=== PATIENT | female | born 1985 | race Caucasian/White ===

== ENCOUNTER 2017-04-09 06:49 | Day surgery (SDC) | payer BC ==
[~2017-04-09] VITALS: Ht 165.1 cm; Wt 81.8 kg
[~2017-04-09 06:49] MED LIST: ALPR0.5T3 PO; CYCL-36 PO; NEUR600T PO; NORC7.5T PO; OXYC5 PO; TRI-TAB PO
[2017-04-09] MEDS ORDERED: SODIUM CHLOR 0.9% 1000 ML INJ 1,000 ML IV SCH (07:00)
[2017-04-09 07:04] VITALS: BP 135/98; PULSE 87; RESP 20; TEMP 97.9; O2SAT 97
[2017-04-09] MEDS ORDERED: ceFAZolin 2 GM PREMIX 50 ML IV SCH (07:15)
[2017-04-09] MEDS ORDERED: NORG1TAB3 PO (07:27)
[2017-04-09] MEDS ORDERED: XANA1TAB2 PO (07:27)
[2017-04-09 07:58] LABS: AUTOMATED NEUTROPHIL # 5.4 TH/MM3 (1.8-7.7); BASOPHIL # 0.1 TH/MM3 (0-0.2); BASOPHIL % 1.3 % (0.0-2.0); EOSINOPHIL # 0.3 TH/MM3 (0-0.4); EOSINOPHIL % 3.3 % (0.0-4.0); HEMATOCRIT 39.6 % (35.0-46.0); HEMO FLAGS DIFF FINAL; LYMPH % 38.3 % (9.0-44.0); MEAN CELL VOLUME 85.1 FL (80.0-100.0); MEAN CORPUSCULAR HEMOGLOBIN 28.6 PG (27.0-34.0); MEAN CORPUSCULAR HGB CONC 33.6 % (32.0-36.0); NEUT % 52.1 % (16.0-70.0); PLATELET COUNT 374 TH/MM3 (150-450); RED BLOOD COUNT 4.66 MIL/MM3 (4.00-5.30); RED CELL DISTRIBUTION WIDTH 13.3 % (11.6-17.2); WHITE BLOOD COUNT 10.4 TH/MM3 (4.0-11.0)
[2017-04-09 08:05] LABS: APTT (PATIENT) 25.2 SEC (24.3-30.1); INTERNATIONAL NORMALIZED RATIO 0.9 RATIO; PROTHROMBIN TIME - PATIENT 9.9 SEC (9.8-11.6)
[2017-04-09] MEDS ORDERED: HYDROmorphone HCL PF 2 MG/ML VIAL ONE (09:05)
[2017-04-09] MEDS ORDERED: fentaNYL CITRATE 250 MCG/5 ML AMP ONE (09:21)
--- NOTE | 2017-04-09 09:40 | PD.RAD ---
Post Procedure Progress Note Pre Procedure Diagnosis: (1) Lumbar radiculopathy Post Procedure Diagnosis: (1) Lumbar radiculopathy Procedure Date: Apr 09, 2017 Supervising Radiologist: Domo Peres Proceduralist/Assist: Peyton Rojas, RT(R), Nereyda Stevenson RT(R)() Anesthesia: Conscious Sedation Plan of Activity Patient to Unit: [facility] Patient Condition: Good See PACS Report for procedural detail/treatment Spinal Procedure Discogram L5-S1 (positive with 1 cc) Domo Peres MD Apr 09, 2017 09:40
[2017-04-09 10:15] VITALS: BP 129/90; PULSE 69; RESP 18; TEMP 98; O2SAT 97
--- NOTE | 2017-04-09 10:25 | RADRPT ---
EXAM DATE/TIME: 04/09/2017 10:00 [facility] COMPARISON: DISCOGRAM, LUMBAR, April 09, 2017, 8:50. INDICATIONS : Post L5-S1 discogram. RADIATION DOSE: 28.40 CTDIvol (mGy) MEDICAL HISTORY : None SURGICAL HISTORY : None. ENCOUNTER: Initial ACUITY: 1 day PAIN SCALE: 0/10 LOCATION: lower back TECHNIQUE: Volumetric scanning of the lumbar spine was performed. Multiplanar reconstructions in the sagittal, coronal and oblique axial planes were performed. Using automated exposure control and adjustment of the mA and/or kV according to patient size, radiation dose was kept as low as reasonably achievable t o obtain optimal diagnostic quality images. DICOM format image data is available electronically for review and comparison. FINDINGS: Limited CT examination of the lower lumbar spine reveals a contrast in the L5-S1 intervertebral disc from injection under fluoroscopic guidance earlier. There is slight annular disc bulge and exit of co ntrast dorsally through a central annular tear. Protrusion of disc material minimally eccentric to th e right. This does not appear to produce a significant degree of canal compromise, however potentiall y affecting the forming S1 nerve roots right worse than left. L5 foramina are widely patent. CONCLUSION: Central annular tear with mild protrusion at L5-S1 as described. Please see report of discogram injec tion procedure for clinical findings. Johny Hoyt MD on April 09, 2017 at 10:20 Board Certified Radiologist. This report was verified electronically.
--- NOTE | 2017-04-09 11:28 | RADRPT ---
EXAM DATE/TIME: 04/09/2017 08:50 [facility] COMPARISON: No previous studies available for comparison. INDICATIONS : Patient is in need of a lumbar discogram for evaluation of disc herniation. MEDICAL HISTORY : History of spinal stenosis, post laminectomy syndrome, HTN. SURGICAL HISTORY : History of laminectomy, knee surgery. ENCOUNTER: Initial ACUITY: 1 month PAIN SCORE: 9/10 LOCATION: back with poain radiating down right leg FLUORO TIME: 5.7 minutes IMAGE SERIES: 2 CONTRAST: 1 cc Omnipaque (iohexol) 300 LEVEL(S): L5 PAIN RESPONSE: Exactly reproduced patient's pain MEDICATION(S): 1.) 2 g cefazolin (Ancef) IV 2.) 2 mg hydromorphone (Dilaudid) IV 3.) 100 mcg fentanyl (Sublimaze) IV Vancomycin within 2 hrs of procedure, Ancef (or alternative) within 1 hr of procedure. PROCEDURE : 1. Fluoroscopically-guided discogram. 2. Conscious sedation with continuous EKG and oximetry monitoring. The risks, benefits and alternatives to the procedure were explained and verbal and written consent w as obtained. The site was prepped in sterile fashion. Full sterile technique was used, including ca p, mask, sterile gloves and gown and a large sterile sheet. Hand hygiene and 2% chlorhexidine and/or betadine/alcohol prep was utilized per protocol for cutaneous antisepsis. The skin and subcutaneous tissues were infiltrated with local anesthetic solution. With fluoroscopic guidance the disc was pu nctured via a steep oblique approach maintaining a needle path in an extradural location. The needle was confirmed to be within the disc space on both the AP and lateral projections. The disc was inject ed with the prescribed volume of contrast and the patient's pain response was recorded. The images demonstrate contrast posterior to the disc margin without epidural spread. The images demo nstrate degeneration of the disc. CT scan is to be performed. The exam was clinically positive. Conscious sedation was performed with the prescribed dosages and duration as above in the presence of an independent trained radiology nurse to assist in the monitoring of the patient. EKG and oximetry remained stable throughout the procedure. The patient tolerated the procedure well and there were n o complications. The patient was sent to post anesthesia recovery in stable condition. CONCLUSION: 1. Clinically positive discogram as above. CT scan is to be performed Domo Peres MD on April 09, 2017 at 11:25 Board Certified Radiologist. This report was verified electronically.
[2017-04-09 12:15] VITALS: BP 111/70; PULSE 72; RESP 18; O2SAT 97
[2017-05-04] MEDS ORDERED: AMOX875T PO (13:22)
[2017-05-04] MEDS ORDERED: DIFL150T PO (13:22)
[2017-05-09] MEDS ORDERED: PROM25TA10 PO (18:38)
[2017-05-09] MEDS ORDERED: AZIT500T2 PO (18:38)
[2017-06-03] MEDS ORDERED: ADDE30XR PO (11:51)
== END 2017-04-09 12:30 | disposition home or self-care (01) ==
LOC: HROP 06:49 → HRIP 06:52 → HROP 12:30
PROVIDERS: ATTEND Orthopaedic Surgery Orthopaedic Surgery of the Spine
DX: M51.26 Other intervertebral disc displacement, lumbar region (principal); I10 Essential (primary) hypertension; F32.9 Major depressive disorder, single episode, unspecified; F41.9 Anxiety disorder, unspecified; M96.1 Postlaminectomy syndrome, not elsewhere classified
CPT/HCPCS: 62290; 72131; 72295; 85025; 85610; 85730; J0690; J1170; J3010

== ENCOUNTER 2017-06-04 09:00 | Inpatient (IN) | payer BC ==
[~2017-06-04] VITALS: Ht 165.1 cm; Wt 79.2 kg
[~2017-06-04 09:00] MED LIST changes: +ADDE30XR PO; -ALPR0.5T3 PO; -CYCL-36 PO; -NEUR600T PO; -NORC7.5T PO; +NORG1TAB3 PO; -OXYC5 PO; -TRI-TAB PO; +XANA1TAB2 PO
--- NOTE | 2017-06-04 09:16 | MH ---
cc: TAMICA STEPHEN DATE OF ADMISSION: 06/04/2017 ADMISSION DIAGNOSIS Status post lumbar laminectomy. HISTORY This patient is a 32-year-old female having had a previous lumbar laminectomy. The patient initially did well but developed recurrent back and hip and leg pain. Investigative studies shows evidence of recurrent disk herniation to the right at L5-S1. The patient is having right hip and leg pain, predominantly in the S1 distribution. She developed progressive degenerative changes across same level. She now presents for revision of lumbar laminectomy, resection herniated nucleus pulposus and a posterior fusion across the same level. PAST MEDICAL HISTORY, SOCIAL HISTORY, FAMILY HISTORY, REVIEW OF SYSTEMS See attached notes. PHYSICAL EXAMINATION GENERAL: A 32-year-old female in moderate distress with her back, right hip and leg. HEENT: Normocephalic, atraumatic. Pupils equal, round, reactive to light and accommodation. Extraocular motions intact. NECK: Supple. CHEST: Clear. HEART: Regular rate and rhythm. ABDOMEN: Soft, nontender with normoactive bowel sounds. MUSCULOSKELETAL EXAMINATION: The thoracolumbar spine with restricted motion, well-healed right-sided incision in the lumbar spine. Straight leg raise is positive on the right and negative on the left. Motor examination shows weakness right gastrocsoleus. IMPRESSION 1. Status post lumbar laminectomy L5-S1 right. 2. Recurrent herniated nucleus pulposus. 3. Right lumbosacral radiculopathy. 4. Degenerative disc disease lumbar spine. PLAN Revision lumbar laminectomy right L5, S1, lateral recess decompression, resection of recurrent herniated nucleus pulposus, posterior spinal fusion, posterolateral interbody fusion, interbody cage, posterior spinal segmental instrumentation, bone grafting. CONSENT There are risks with surgery including infection, bleeding, loss of motion, continued pain, need for further surgery, neurologic and vascular injury. The patient understands these issues and wishes to press on with the surgery as outlined above. MD ROSY Peña/CORY /11:20 PM /9:09 AM
[2017-06-04] MEDS ORDERED: PROM25TA10 PO (10:29)
[2017-06-04] MEDS ORDERED: POVIDONE IODINE 5% (ANTISEPSIS KIT) 4 APPLICATIONS EACH NARE PRN (10:30)
[2017-06-04] MEDS ORDERED: INSULIN HUMAN REGULAR 1,000 UNITS/10 ML VIAL SQ PRN (10:30)
[2017-06-04] MEDS ORDERED: SODIUM CHLORID 0.9% 500 ML IV PRN (10:30)
[2017-06-04] MEDS ORDERED: CHLORHEXIDINE GLUCONATE 2 % 1 PACK (2 CLOTHS) TOPICAL PRN (10:30)
[2017-06-04] MEDS ORDERED: METOPROLOL TARTRATE 25 MG TAB PO PRN (10:30)
[2017-06-04] MEDS ORDERED: LACTATED RINGER'S 1000 ML IV PRN (10:30)
[2017-06-04] MEDS ORDERED: ceFAZolin INJ 1,000 MG VIAL IV ONE ×2 (10:41→16:59)
[2017-06-04] MEDS ORDERED: ONDANSETRON HCL 4 MG/2 ML VIAL IV PUSH ONE (10:41)
[2017-06-04] MEDS ORDERED: ROCURONIUM INJ 50 MG/5 ML SYRINGE IV PUSH ONE (10:41)
[2017-06-04] MEDS ORDERED: DEXAMETHASONE SOD PHOS 4 MG/ML VIAL IV ONE (10:41)
[2017-06-04] MEDS ORDERED: PROPOFOL 200 MG/20 ML AMP IV ONE (10:41)
[2017-06-04] MEDS ORDERED: MIDAZOLAM HCL 2 MG/2 ML VIAL IV ONE (10:41)
[2017-06-04] MEDS ORDERED: PHENYLEPH/NS 1000 MCG/10 ML SYR IV ONE (10:41)
[2017-06-04] MEDS ORDERED: VANCOMYCIN 1000 MG/NS 250 ML (for <70 kg) IV SCH ×2 (10:45)
[2017-06-04] MEDS ORDERED: ceFAZolin 2 GM PREMIX 50 ML IV SCH (10:45)
[2017-06-04] MEDS ORDERED: POVIDONE IODINE 7.5% SCRUB 118 ML BOTTLE TOPICAL SCH (10:45)
[2017-06-04] MEDS ORDERED: BETAMETHASONE SOD PHOS/ACETATE SUSP 30 MG/5 ML VIAL ONE (12:45)
[2017-06-04] MEDS ORDERED: GENTAMICIN SULFATE 80 MG/2 ML VIAL ONE (12:45)
[2017-06-04] MEDS ORDERED: HYDROmorphone HCL PF 2 MG/ML VIAL ONE (16:18)
[2017-06-04] MEDS ORDERED: ACETAMINOPHEN 1000 MG/100 ML 100 ML IV ONE (16:18)
--- NOTE | 2017-06-04 17:28 | RADRPT ---
EXAM DATE/TIME: 06/04/2017 17:00 [facility] COMPARISON: No previous studies available for comparison. INDICATIONS : L5-S1 fusion. MEDICAL HISTORY : None. SURGICAL HISTORY : L5-S1 discogram ENCOUNTER: Initial ACUITY: 1 day PAIN SCORE: Non-responsive. LOCATION: Bilateral lumbar spine FINDINGS: Targeted intraoperative OEC spot images of the lumbosacral junction in the AP and lateral projections . Bipedicular posterior fixation with intervertebral disc prostheses. Hardware all appears to be inta ct. No fracture or significant listhesis. CONCLUSION: Appropriate postoperative appearance of the lumbosacral junction with Bipedicular posterior fixa tion and intervertebral disc prostheses at L5-S1. Abelino Mauricio MD on June 04, 2017 at 17:25 Board Certified Radiologist. This report was verified electronically.
[2017-06-04] MEDS ORDERED: PROMETHAZINE HCL 25 MG TAB PO PRN (17:30)
[2017-06-04] MEDS ORDERED: ALPRAZolam 1 MG TAB PO PRN (17:30)
[2017-06-04] MEDS ORDERED: KETAMINE HCL 500 MG/5 ML VIAL ONE (17:40)
--- NOTE | 2017-06-04 17:41 | PD.OP ---
cc: Irving Spivey MD Operative Report Date of Surgery: Jun 04, 2017 Preoperative Diagnosis: Status post lumbar laminectomy right L5-S1 Recurrent herniated nucleus pulposus L5-S1. Right lumbosacral radiculopathy. Degenerative disc disease lumbar spine, L5-S1 Postoperative Diagnosis: Same Procedure: Revision lumbar laminectomy right L5, S1 with subtotal right facet resection and resection recurrent herniated nucleus pulposus. Posterior spinal fusion, L5-S1. Posterior spinal segmental instrumentation, L5-S1. Posterior lateral interbody fusion, L5-S1. Placement of interbody cage L5-S1 from the right. Grafting of the lumbar spine Anesthesia: Gen. Surgeon: Irving Spivey Family Living Educator(s): ALTA Mejias Operation and Findings: EBL: 150 cc INDICATION: This patient is a 32-year-old female status post previous laminectomy and decompression for large disc herniation at L5-S1. The patient had recurrent pain into the right leg. Investigative studies shows evidence of recurrent disc herniation centrally into the right at the same level creating a significant mass effect on the spinal canal. The patient presents for revision laminectomy and fusion NOTE: Cee Mejias PA-C was present for the entire surgical procedure as my first crusher. In my medical opinion her skill and care was necessary for the proper management of this patient. PROCEDURE: The patient was brought to the operating room and anesthetized in the supine position. The patient was rolled to a prone position on a Alcides frame on a Seb table. All pressure points were protected in the back was scrubbed with alcohol followed by Hibiclens followed by ChloraPrep and draped sterilely. A timeout was done and antibiotics were given. AP and lateral radiographic images were used to identify the proper levels and perform skin markings. We started from the right side at the L5-S1 level. A paramedian incision was made, excising the previous incision, and a midline fascial incision was made. A dilating system was placed down to the interlaminar space and held provisionally to the side of the table. A high-speed bur under the microscope was used to perform a revision laminectomy from that side. A lateral recess decompression was accomplished. A subtotal facet resection was accomplished. The crossing and exiting nerve roots were completely decompressed. There was evidence of a recurrent disc herniation centrally into the right creating a significant mass effect upon the crossing S1 nerve root. A portion of the disc extended into the foramen adjacent to the L5 nerve root. This was resected. An annulotomy was performed. A total discectomy was accomplished. All of the disc was removed from the disc space. The disc was then prepared for a cage. On the back table a combination of autogenous bone graft and stem cell material was mixed with demineralized bone matrix. This prepared on the back table to be used for bone grafting. The bone graft was placed into the disc space between the operative level. An a Stax expandable cage was placed in the center between that level. There was no complication. The alignment was satisfactory. No significant bleeding was encountered. The wound was irrigated copiously. The fascia was closed with interrupted 0 Vicryl suture. Percutaneous screws were placed on the same side with a sequence of a small fascial incision, a bur down to the pedicle under fluoroscopy and placement of the guidepin within the proper position of the vertebral body. This measured carefully tapped and proper length screws were positioned. A percutaneous shannan was positioned according to manometer technician's recommendation and tightened. Wounds irrigated copiously bone graft placed along the transverse process across that region. The fascia was closed with interrupted Vicryl suture subcutaneous history of suture and skin with running intradermal 3-0 Vicryl followed by Steri-Strips The attention directed to the opposite side. Percutaneous screws were positioned. Under fluoroscopy a small incision was made. An danielle was placed down through the pedicle followed by placement of a guide pin and measured and tapped for proper screw. The screws were advanced and a percutaneous shannan was placed according to manometer technician's recommendation. This was then tightened. The wound was irrigated. Bone graft was placed along the transverse processes across that region. The fascia was closed with interrupted Vicryl suture, subcutaneous tissue with 2-0 Vicryl suture and skin with running intradermal 3- 0 Vicryl. Intraoperative x-rays were obtained alignment was satisfactory rotation was noted.. The sponge count needle counts and instrument counts were all correct. The patient tolerated procedure well was taken to the recovery room in satisfactory condition. FINDINGS: There was evidence of a very redundant annulus and a disc herniation to the right at the operative level. The screws were by spine wave and the cage by the same company. We used one medium Nucel stem cells with a combination of BMP and cortical bone powder. There was no complication that was appreciated Irving Spivey MD Jun 04, 2017 17:41
[2017-06-04] MEDS ORDERED: HYDR-3580 PO (17:43)
[2017-06-04] MEDS ORDERED: SODIUM CHLORIDE 0.9% FLUSH 5 ML FLUSH IVF PRN (17:45)
[2017-06-04] MEDS ORDERED: DO NOT ADM ANY ANTICOAGULANT DRUGS PRN ×2 (17:45→17:59)
[2017-06-04] MEDS ORDERED: ACETAMINOPHEN/HYDROcodone 325 MG/7.5 MG TAB PO PRN ×2 (17:45)
[2017-06-04] MEDS ORDERED: Post-op Orders (for Pharmacy) MISC XX ONE (17:45)
[2017-06-04] MEDS ORDERED: MORPHINE SULFATE 8 MG/ML INJ IV PUSH PRN (17:45)
[2017-06-04] MEDS ORDERED: BISACODYL 10 MG SUPP RECTAL PRN (17:45)
[2017-06-04] MEDS ORDERED: NALOXONE HCL 0.4 MG/ML AMP IV PUSH PRN (17:45)
[2017-06-04] MEDS ORDERED: ONDANSETRON HCL 4 MG/2 ML VIAL IV PUSH PRN (17:45)
[2017-06-04] MEDS ORDERED: MORPHINE SULFATE 30 MG/30 ML PCA IV SCH (17:45)
[2017-06-04] MEDS ORDERED: ALUMINUM/MAGNESIUM/SIMETH 30 ML CUP PO PRN (17:45)
[2017-06-04] MEDS ORDERED: SOD PHOSPHATE/SOD BIPHOSPHATE (ADULT) ENEMA 133ML PR PRN (17:45)
[2017-06-04] MEDS ORDERED: *morphine SULFATE 8 MG/ML PERIprocedure ONLY ONE ×2 (17:53→18:04)
[2017-06-04] MEDS ORDERED: *MEPERIDINE 25 MG INJ VIAL PERIprocedural Use ONLY ONE (17:56)
[2017-06-04] MEDS: LACTATED RINGER'S 1000 ML INJ 1,000 ML IV SCH (18:00)
[2017-06-04] MEDS ORDERED: MORPHINE SULFATE 30 MG/30 ML PCA ONE (18:22)
[2017-06-04] MEDS ORDERED: HYDROmorphone HCL PF 1 MG/ML VIAL ONE (18:22)
[2017-06-04 19:51] VITALS: BP 125/82; PULSE 72; RESP 16; TEMP 95.4; O2SAT 100
[2017-06-04] MEDS ORDERED: ZOLPIDEM TARTRATE 5 MG TAB PO PRN (21:00)
[2017-06-04] MEDS: SODIUM CHLORIDE 0.9% FLUSH 5 ML FLUSH IVF SCH (21:00)
[2017-06-04 21:32] VITALS: O2SAT 100
[2017-06-04] MEDS: PCA - TOTAL MG MORPHINE DELIVERED PER SHIFT SCH (22:00)
[2017-06-05 00:21] VITALS: BP 121/79; PULSE 94; RESP 17; TEMP 96.4; O2SAT 99
[2017-06-05 04:00] VITALS: BP 125/79; PULSE 79; RESP 15; TEMP 97.7; O2SAT 100
[2017-06-05 05:32] LABS: HEMATOCRIT 30.7 % (35.0-46.0); REVIEW FLAG FINAL
[2017-06-05] MEDS: LACTATED RINGER'S 1000 ML INJ 1,000 ML IV SCH (06:30)
[2017-06-05] MEDS: SODIUM CHLORIDE 0.9% FLUSH 5 ML FLUSH IVF SCH (07:33)
[2017-06-05] MEDS: PCA - TOTAL MG MORPHINE DELIVERED PER SHIFT SCH (07:34)
[2017-06-05 08:00] VITALS: BP 124/81; PULSE 87; RESP 18; TEMP 97.9; O2SAT 100
--- NOTE | 2017-06-05 08:42 | HHI.DCPOC ---
Discharge Care Plan Diagnosis: (1) Postlaminectomy syndrome (2) Degeneration of intervertebral disc of lumbar region (3) Lumbar radiculopathy Your Health Problems Are: Incision/Drains Swelling Goals to Promote Your Health * To prevent worsening of your condition and complications * To maintain your health at the optimal level Directions to Meet Your Goals Take your medications as prescribed Follow your dietary instruction Follow activity as directed Keep your appointments as scheduled Take your immunizations and boosters as scheduled If your symptoms worsen call your PCP, if no PCP go to Urgent Care Center or Emergency Room Smoking is Dangerous to Your Health. Avoid second hand smoke Call the 24-hour hour crisis hotline for domestic abuse at Rika Vera Jun 05, 2017 08:42
--- NOTE | 2017-06-05 08:48 | HHI.DS ---
Discharge Summary Admission Date Jun 04, 2017 at 09:46 Discharge Date: Jun 05, 2017 Admitting Diagnosis see below Diagnosis: (1) Lumbar radiculopathy Diagnosis: Principal ICD Codes: M54.16 - Lumbar radiculopathy Status: Acute (2) Postlaminectomy syndrome Diagnosis: Principal ICD Codes: M96.1 - Postlaminectomy syndrome, not elsewhere classified (3) Degeneration of intervertebral disc of lumbar region Diagnosis: Principal ICD Codes: M51.36 - Other intervertebral disc degeneration, lumbar region Procedures Lumbar laminectomy L5S1, subtotal facet resection, posterior lumbar fusion L5S1 , posterolateral interbody fusion, posterior spinal segmental instrumentation and interbody cage L5S1, bone graft. Brief History This is a 32 year old female patient with a history of previous disc herniation and laminectomy L5S1. She did well for a period of time and then began having increased back pain. She sought out medical treatment. Imaging studies were ordered showing increased dessication and instability at the L5S1 level. Medications and therapy were ordered. She began having increased radicular pain in her legs so an MRI was ordered. Epidural steroid injections were pursued but she continued to struggle and her back pain increased. Surgical treatment was recommended and after several months she elected to move forward. CBC/BMP: 06/05/17 0520 Significant Findings Laboratory Tests Test 06/05/17 05:20 Hemoglobin 10.6 GM/DL (11.6-15.3) Hematocrit 30.7 % (35.0-46.0) Hospital Course Surgical treatment was performed on the day of admission without complication. She recovered well in PACU and was transferred to the orthopaedic floor. Pain was controlled with IV and oral medications. She was compliant with physical therapy and all restrictions. After ___ day she was found to be stable and discharged home with home health care. She was instructed to continue with dry dressing changes daily, to pursue a high fiber diet for 3-5 days and to continue her lumbar brace for 10-12 weeks. She was given a prescription of [place] 7.5mg to be filled outpatient. Pt Condition on Discharge: Stable Discharge Disposition: Disch w/ Home Health Serv Discharge Instructions Diet Instructions: As Tolerated, No Restrictions, High Fiber Diet Activities You Can Perform: Weight Bearing as Patsy, See Additionl Instruction Activities to Avoid: Strenuous Activity Additional Activity Instruc.: Brace full-time when out of bed for 10-12 weeks. New Medications: Adjustable Commode 3-in-1 (Adjustable Commode 3-in-1) 1 Mis Mis EA .ROUTE DIRECTED, #1 Walker with Front Wheels (Walker with Front Wheels) 1 Mis Mis EA .ROUTE DIRECTED, #1 0 Refills Hydrocodone-Acetaminophen (Hydrocodone-Acetaminophen) 7.5-325 mg Tab 1 TAB PO Q4H PRN for PAIN, #50 TAB Continued Medications: Alprazolam (Xanax) 1 Mg Tab 1 MG PO BID PRN for ANXIETY, TAB 0 Refills Norgestimate-Ethinyl Estradiol (Norgestimate-Ethinyl Estradiol) 0.18/0.215/0.25 Mg-25 Mcg Tab 1 TAB PO DAILY for Control, #1 PACK 0 Refills Promethazine (Phenergan) 25 Mg Tablet 25 MG PO Q6H PRN for NAUSEA OR VOMITING, TAB 0 Refills Rika Vera Jun 05, 2017 08:48
[2017-06-05] MEDS ORDERED: WALKER WHEELS/F1 MIS (08:49)
--- NOTE | 2017-06-05 08:52 | HHI.FF ---
Face to Face Verification Diagnosis: (1) Lumbar radiculopathy (2) Postlaminectomy syndrome (3) Degeneration of intervertebral disc of lumbar region Physical Therapy Gait training, Safety evaluation, Transfer training, bed to chair S/P Spinal Fusion: Gait training with walker, Weight bearing as tolerated, No twisting of torso, No bending Additional Instructions PT 4 days/wk for ONE week. WBAT. 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 No substantial bending, twisting or lifting. Nursing RN Days per Week: 4 x Week(s): 1 Dressing Changes: Daily dressing change, 4x4s, Coverderm/Primapore Additional Instructions RN 4 days.wk for ONE week. Dry dressing changes daily w etoh and coverderm. Ok to shower pod#5-6 if dressing dry and no drainage. NO tub baths for 3-4 weeks postop I have seen patient Fina Johnsno on 06/05/17. My clinical findings support the need for the requested home health care services because: Limited ability to care for self High risk of falls I certify that my clinical findings support that this patient is homebound because: Post-op weakness Unsteady gait/balance Rika Vera Jun 05, 2017 08:52
[2017-06-05] MEDS ORDERED: NORGESTIMATE ETHINYL ESTRADIOL PO SCH (09:00)
[2017-06-05] MEDS ORDERED: ETHINYL ESTRADIOL PO SCH (09:00)
[2017-06-05] MEDS ORDERED: NORGESTIMATE PO SCH (09:00)
[2017-06-05] MEDS ORDERED: ADJUSTABLE COMM1 MIS (09:22)
--- NOTE | 2017-06-05 11:48 | PD.ORT.PN ---
Subjective Subjective Remarks Doing well. She is very pleased with her pain control. She states that despite her surgery she feels better today than prior to the surgery. She denies any new radiating leg pain. Urinating well. Appetite slowly returning. No other complaints or concerns. She would like to discharge home today. Objective Vitals Vital Signs Date Time Temp Pulse Resp B/P (MAP) Pulse Ox O2 Delivery O2 Flow Rate FiO2 06/05/17 08:00 97.9 87 18 124/81 (95) 100 06/05/17 07:34 16 06/05/17 04:00 97.7 79 15 125/79 (94) 100 06/05/17 00:21 96.4 94 17 121/79 (93) 99 06/04/17 22:00 15 06/04/17 21:32 100 Nasal Cannula 2.00 06/04/17 19:51 95.4 72 16 125/82 (96) 100 06/04/17 18:45 97.9 68 12 119/63 (81) 99 Nasal Cannula 2 06/04/17 18:43 12 06/04/17 18:30 66 12 130/71 (90) 99 Nasal Cannula 2 06/04/17 18:15 69 10 129/76 (93) 100 Nasal Cannula 2 06/04/17 18:00 79 10 153/91 (111) 100 Nasal Cannula 2 06/04/17 17:43 97.7 95 12 160/104 (122) 100 Nasal Cannula 3 I/O 06/04/17 06/04/17 06/04/17 06/05/17 06/05/17 06/05/17 07:00 15:00 23:00 07:00 15:00 23:00 Intake Total 2580 ml 480 ml Output Total 1050 ml 400 ml Balance 1530 ml 80 ml Intake Oral 480 ml 480 ml IV Total 100 ml Other 2000 ml Output Urine Total 900 ml 400 ml Estimated Blood Loss 150 ml # Bowel Movements 0 0 Result Diagram: 06/05/17 0520 Procedures Lumbar laminectomy L5S1, subtotal facet resection, posterior lumbar fusion L5S1 , posterolateral interbody fusion, posterior spinal segmental instrumentation and interbody cage L5S1, bone graft. Objective Remarks Laying in bed at bedside NAD VSS L/S Dressing c/d/i, mild drainage, mild swelling, no erythema +motor ehl bilat, +sens, +nvi Neg homans Assessment & Plan Ortho Post Op Day #: 1 Problem List: (1) Lumbar radiculopathy ICD Codes: M54.16 - Lumbar radiculopathy Status: Acute (2) Postlaminectomy syndrome ICD Codes: M96.1 - Postlaminectomy syndrome, not elsewhere classified (3) Degeneration of intervertebral disc of lumbar region ICD Codes: M51.36 - Other intervertebral disc degeneration, lumbar region Assessment and Plan pod#1 s/p Lami/Fusion L5S1 Ortho stable. Pain well controlled. Ok to d/c home w hhc today after PT. Dressing changes beginning pod#2. WBAT. 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 F/U in 2 weeks as scheduled. HHC written for one week postop. Rika Vera Jun 05, 2017 11:48
[2017-06-05 12:00] VITALS: BP 134/70; PULSE 98; RESP 18; TEMP 98.7; O2SAT 100
[2017-06-05 13:12] VITALS: O2SAT 99
[2017-06-05] MEDS ORDERED: DOCUSATE SODIUM 100 MG CAP PO SCH (21:00)
== END 2017-06-05 13:54 | disposition home or self-care (01) | DRG 460 ==
LOC: HSDI 09:46 → N06B 19:22
PROVIDERS: ADMIT Orthopaedic Surgery Orthopaedic Surgery of the Spine; ATTEND Orthopaedic Surgery Orthopaedic Surgery of the Spine
PROC: 0ST40ZZ Resection of Lumbosacral Disc, Open Approach (ICD-10-PCS; 2017-06-04)
PROC: 0SG30AJ Fusion of Lumbosacral Joint with Interbody Fusion Device, Posterior Approach, Anterior Column, Open Approach (ICD-10-PCS; principal; 2017-06-04 13:05)
DX: M51.27 Other intervertebral disc displacement, lumbosacral region (principal); M51.36 Other intervertebral disc degeneration, lumbar region; M54.17 Radiculopathy, lumbosacral region; M96.1 Postlaminectomy syndrome, not elsewhere classified
CPT/HCPCS: 72100; 76000; 85014; 85018; 86850; 86900; 86901; 94150; C1713; J0131; J0690; J0702; J1100; J1170; J1580; J2175; J2250; J2270; J2370; J2405; J3010; J3370; J7050; J7120